=== PATIENT | male | born 1975 | race Caucasian/White ===

== ENCOUNTER 2016-09-23 03:29 | Emergency (ER) | payer BC ==
[2016-09-23] MEDS ORDERED: Diphtheria,Pertussis(Acell),Tetanus Vaccine 0.5 ML Syringe IM ONE (03:32)
[2016-09-23] MEDS ORDERED: Bacitracin Oint 1 GM U/D Packet TOP ONE (03:33)
[2016-09-23] MEDS ORDERED: Lidocaine 1% 20 ML MDV INJECT ONE (03:34)
--- NOTE | 2016-09-23 04:33 | EDM.PDOC ---
ED HPI GENERAL MEDICAL PROBLEM - General Chief Complaint: Upper Extremity Injury/Pain Stated Complaint: THUMB INJURY Time Seen by Provider: 09/23/16 04:31 - History of Present Illness INITIAL COMMENTS - FREE TEXT/NARRATIVE: HISTORY AND PHYSICAL: History of present illness: Patient 40-year-old since her last raise his left hand it occurred one hour prior to arrival he denies up to 10 Review of systems: As per history of present illness and below otherwise all systems reviewed and negative. Past medical history: As per history of present illness and as reviewed below otherwise noncontributory. Surgical history: As per history of present illness and as reviewed below otherwise noncontributory. Social history: No reported history of drug or alcohol abuse. Family history: As per history of present illness and as reviewed below otherwise noncontributory. Physical exam: HEENT: Atraumatic, normocephalic, pupils reactive, negative for conjunctival pallor or scleral icterus, mucous membranes moist, throat clear, neck supple, nontender, trachea midline. Lungs: Clear to auscultation, breath sounds equal bilaterally, chest nontender. Heart: S1S2, regular, negative for clicks, rubs, or JVD. Abdomen: Soft, nondistended, nontender. Negative for masses or hepatosplenomegaly. Negative for costovertebral tenderness. Pelvis: Stable nontender. Genitourinary: Deferred. Rectal: Deferred. Extremities: Flap-type laceration noted approximately 4 cm moderate to on the volar aspect of the proximal third first digit of the left hand no tendon involvement CMS neurovascular is unremarkable Neuro: Awake, alert, oriented. Cranial nerves II through XII unremarkable. Cerebellum unremarkable. Motor and sensory unremarkable throughout. Exam nonfocal. Diagnostics: None Therapeutics: And 5 TD IM patient was anesthetized 1% lidocaine without epinephrine irrigated with copious amounts 0.9 normal saline prepped and draped in sterile manner closed with 4-0 nylon interrupted suture tube gauze bacitracin was applied Impression: #1 laceration left hand Definitive disposition and diagnosis as appropriate pending reevaluation and review of above. Left 1-Thumb Pain Score (Numeric/FACES): 2 - Related Data Allergies Allergy/AdvReac Type Severity Reaction Status Date / Time No Known Allergies Allergy Verified 09/23/16 03:36 Home Meds: Home Meds . [No Known Home Meds] 03/21/16 [History] Past Medical History - Past Health History Medical/Surgical History: Denies Medical/Surgical History Gastrointestinal History: Reports: Other (See Below) Other Gastrointestinal History: occasional heartburn - Infectious Disease History Infectious Disease History: Reports: Chicken Pox - Past Surgical History Head Surgeries/Procedures: Reports: None Male Surgical History: Reports: Vasectomy Social & Family History - Family History Family Medical History: Noncontributory - Tobacco Use Smoking Status *Q: Former Smoker Used Tobacco, but Quit: Yes Month Tobacco Last Used: "years ago" - Caffeine Use Caffeine Use: Reports: Coffee Caffeine Use Comment: 3-4cups/day - Recreational Drug Use Recreational Drug Use: No Review of Systems - Review of Systems Review Of Systems: ROS reveals no pertinent complaints other than HPI. Trauma Exam - Physical Exam Exam: See Below (See dictation) Course - Vital Signs Last Recorded V/S: Last Vital Signs Temp 36.5 C 09/23/16 03:34 Pulse 104 H 09/23/16 03:34 Resp 18 09/23/16 03:34 BP 139/87 09/23/16 03:34 Pulse Ox 97 09/23/16 03:34 - Orders/Labs/Meds Orders: Active Orders 24 hr Category Date Time Status Vaccines to be Administered [RC] PER UNIT ROUTINE Care 09/23/16 03:32 Active Meds: Medications Discontinued Medications Generic Name Dose Route Start Last Admin Trade Name Joseq PRN Reason Stop Dose Admin Bacitracin 1 dose 09/23/16 03:33 09/23/16 03:44 Bacitracin Oint 1 Gm TOP 09/23/16 03:34 1 dose ONETIME ONE Administration Diphtheria/Tetanus/Acell Pertussis 0.5 ml 09/23/16 03:32 09/23/16 03:43 Adacel IM 09/23/16 03:33 0.5 ml .ONCE ONE Administration Lidocaine HCl 20 ml 09/23/16 03:34 09/23/16 03:44 Xylocaine 1% INJECT 09/23/16 03:35 20 ml ONETIME ONE Administration Departure - Departure Time of Disposition: 04:33 Disposition: Home, Self-Care 01 Condition: good Clinical Impression: Laceration - Discharge Information Forms: ED Department Discharge Additional Instructions: The following information is given to patients seen in the emergency department who are being discharged to home. This information is to outline your options for follow-up care. We provide all patients seen in our emergency department with a follow-up referral. The need for follow-up, as well as the timing and circumstances, are variable depending upon the specifics of your emergency department visit. If you don't have a primary care physician on staff, we will provide you with a referral. We always advise you to contact your personal physician following an emergency department visit to inform them of the circumstance of the visit and for follow-up with them and/or the need for any referrals to a consulting specialist. The emergency department will also refer you to a specialist when appropriate. This referral assures that you have the opportunity for followup care with a specialist. All of these measure are taken in an effort to provide you with optimal care, which includes your followup. Under all circumstances we always encourage you to contact your private physician who remains a resource for coordinating your care. When calling for followup care, please make the office aware that this follow-up is from your recent emergency room visit. If for any reason you are refused follow-up, please contact the [facility] emergency department at and asked to speak to the emergency department charge nurse. Wound check followup primary medical doctor 24-48 hours suture removal 10-14 days return as needed as discussed - My Orders Last 24 Hours: My Active Orders 09/23/16 03:32 Vaccines to be Administered [RC] PER UNIT ROUTINE - Assessment/Plan Last 24 Hours: My Active Orders 09/23/16 03:32 Vaccines to be Administered [RC] PER UNIT ROUTINE
[2016-09-23 04:49] VITALS: BP 129/85
== END 2016-09-23 04:40 | disposition home or self-care (01) ==
LOC: MW.ED 03:29
DX: S61.012A Laceration without foreign body of left thumb without damage to nail, initial encounter (principal); Z98.52 Vasectomy status; Z23 Encounter for immunization; Z87.891 Personal history of nicotine dependence; X58.XXXA Exposure to other specified factors, initial encounter
CPT/HCPCS: 12002; 90471; 90715; 99282; 99282-25